=== PATIENT | male | born 1945 | race Caucasian/White ===

== ENCOUNTER 2017-02-17 07:55 | Emergency (ER) | payer OTHER ==
[~2017-02-17] VITALS: Ht 172.7 cm; Wt 87.6 kg
[~2017-02-17 07:55] MED LIST: ALBUPOW38 PO; CRUTCHES AXILLARY; SPIRCAP INH; SYMB160A INH
[2017-02-17 07:58] VITALS: BP 158/75; PULSE 100; RESP 18; TEMP 98; O2SAT 97
[2017-02-17] MEDS ORDERED: LISI-519 PO (08:13)
[2017-02-17] MEDS ORDERED: IPRA17I INH (08:13)
[2017-02-17] MEDS ORDERED: SYMB80AE INH (08:13)
[2017-02-17] MEDS ORDERED: ATOR20TA15 PO (08:13)
[2017-02-17] MEDS ORDERED: TETANUS/DIPHTHERIA TOXOID ADULT 0.5 ML VIAL IM ONE (08:15)
[2017-02-17] MEDS ORDERED: AMOXICILLIN/CLAVULANATE K 875 MG TAB PO ONE (08:15)
[2017-02-17] MEDS ORDERED: AUGM875T3 PO (08:17)
--- NOTE | 2017-02-17 08:17 | PD ---
HPI Chief Complaint: Bite or Sting Time Seen by Provider: 08:05 Travel History International Travel<30 days: No Contact w/Intl Traveler<30days: No Traveled to known affect area: No History of Present Illness HPI The patient is a 71-year-old male who presents to the emergency department for Bite to left forearm with erythema and tenderness. The patient states he was bit by his pet cat last Tuesday, had several superficial puncture wounds extensor surface of the left wrist. However, last several days he now notes increasing redness and swelling to the extensor surface of the left forearm. The patient states he had fever 2 days ago as high as 104, he took aspirin which brought the fever down. He does note the extensor surface the left forearm is red and swollen, painful to palpation. He denies any erythema proximal to the left elbow. He denies any swelling or tenderness in the left axilla. Symptoms are moderate, exacerbated after he was bit by his pet cat, and there are no current alleviating factors. He cannot recall his last tetanus shot. PFSH Past Medical History Hx Anticoagulant Therapy: No Anemia: Yes Arthritis: Yes Autoimmune Disease: No Cardiovascular Problems: Yes (HTN) COPD: Yes Cerebrovascular Accident: No Diabetes: No Diminished Hearing: Yes Endocrine: No GERD: Yes Genitourinary: Yes Hypertension: Yes Musculoskeletal: Yes Psychiatric: No Respiratory: Yes Immunizations Current: Yes Renal Failure: Yes (stage 3) Past Surgical History Abdominal Surgery: Yes (appendectomy 5 years ago) Appendectomy: Yes Tonsillectomy: Yes Other Surgery: Yes Social History Alcohol Use: Yes (COUPLE OF BEERS, COUPLE TIMES A WEEK) Tobacco Use: No (quit 5 years ago, smoked 50 years) Substance Use: No Allergies-Medications (Allergen,Severity, Reaction): Coded Allergies: No Known Allergies (Verified Adverse Reaction, Unknown, 02/17/17) Reported Meds & Prescriptions Reported Meds & Active Scripts Active Crutches Axillary (Device) Device 1 Ea Reported Spiriva Handihaler (Tiotropium Rosebud) 18 Mcg Cap 1 Puff INH DAILY DO NOT SWALLOW CAPSULES Proventil (Albuterol Sulfate) 2 Mg Tab 2 Mg PO QID Symbicort (Budesonide/Formoterol Fumarate) 160 Mcg/4.5 Mcg Aer 2 Puff INH BID * SHAKE WELL BEFORE USE * Review of Systems Except as stated in HPI: all other systems reviewed are Neg General / Constitutional: Positive: Fever Musculoskeletal: Positive: Pain Skin: Positive Other Neurologic: No: Paresthesia, Sensory Disturbance Physical Exam Narrative GENERAL: Awake, alert, pleasant 71-year-old male who appears his stated age and is in no acute respiratory distress. SKIN: Focused skin assessment warm/dry. Puncture wounds noted to the extensor surface of the left wrist, 4 discrete puncture wounds noted. Mild swelling and erythema over the extensor surface of the left elbow which is tender but no significant fluctuance noted. No epitrochlear lymphadenopathy or left axillary lymphadenopathy noted. HEAD: Atraumatic. Normocephalic. EYES: No injection or drainage. NECK: Trachea midline. No JVD. MUSCULOSKELETAL: Erythema and mild swelling noted over the extensor surface the left forearm. He is able fully flex and extend the left wrist as well as supinate and pronate the left forearm. He is able fully flex and extend the left elbow. Intrinsic left hand muscles are intact. Positive left radial pulse. No epitrochlear or left axillary lymphadenopathy noted. 4 discrete puncture wounds noted to the extensor surface of the left wrist. NEUROLOGICAL: Awake and alert. No obvious cranial nerve deficits. Motor grossly within normal limits. Normal speech. PSYCHIATRIC: Appropriate mood and affect; insight and judgment normal. Data Data Last Documented VS Vital Signs Date Time Temp Pulse Resp B/P (MAP) Pulse Ox O2 Delivery O2 Flow Rate FiO2 02/17/17 07:58 98.0 100 18 158/75 (102) 97 Orders Orders Tetanus/Diphtheria Tox Adult (Tetanus/Di (02/17/17 08:15) Amoxicil-Clavulanate (Augmentin) (02/17/17 08:15) [facility] Medical Decision Making Medical Screen Exam Complete: Yes Emergency Medical Condition: Yes Medical Record Reviewed: Yes Differential Diagnosis Differential diagnosis includes cat bite, cellulitis, lymphadenitis, Cat Scratch disease, abscess, infected wound. Narrative Course The patient's erythema was marked with a marked with a surgical marking pen. The patient had his tetanus shot updated and was administered Augmentin 875 mg orally. The patient is advised to return on Tuesday when I'm working between 8 AM and 4 PM for reevaluation of the left forearm, to return sooner for progressing fevers or symptoms. He is advised to take medications as directed. Diagnosis Primary Impression: Cat bite of left forearm with infection Qualified Codes: S51.852A - Open bite of left forearm, initial encounter; L08.9 - Local infection of the skin and subcutaneous tissue, unspecified; W55.01XA - Bitten by cat, initial encounter Patient Instructions: General Instructions Additional Instructions: Medications as directed. Return on Tuesday between 8 AM and 4 PM for reevaluation by myself. Return sooner if symptoms worsen or progress. Med/Other Pt SpecificInfo: Prescription(s) given Scripts Amoxicillin-Clavulanate (Augmentin) 875-125 Mg Tab 1 TAB PO BID for Infection for 10 Days, #20 TAB 0 Refills Prov: Kevin Ochoa MD 02/17/17 Disposition: 01 DISCHARGE HOME Condition: Stable Kevin Ochoa MD Feb 17, 2017 08:17
== END 2017-02-17 08:25 | disposition home or self-care (01) ==
LOC: PHED 07:55
DX: S60.872A Other superficial bite of left wrist, initial encounter (principal); L08.9 Local infection of the skin and subcutaneous tissue, unspecified; D64.9 Anemia, unspecified; I10 Essential (primary) hypertension; J44.9 Chronic obstructive pulmonary disease, unspecified; W55.01XA Bitten by cat, initial encounter; Z23 Encounter for immunization
CPT/HCPCS: 90471; 90714